=== PATIENT | female | born 1990 | race African-American/Black ===

== ENCOUNTER 2019-12-07 15:35 | Emergency (ER) | payer OTHER, SELFPAY ==
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
[2019-12-07 15:49] VITALS: BP 128/84; RESP 98; TEMP 36.6
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
[2019-12-07 17:42] VITALS: BP 142/80; PULSE 94; RESP 18; O2SAT 98
[2019-12-07] MEDS: IBUPROFEN 400 MG TABLET PO (19:28)
--- NOTE | 2019-12-07 19:30 | PC.NURSE ---
PT. WAS DISCHARGED BEFORE MED. NOTED TO BE GIVEN WAS IN WAITING ROOM. AND INTERACTIVE DEVELOPER GAVE MEDICATION . L
== END 2019-12-07 17:43 | disposition home or self-care (01) ==
PROVIDERS: Emergency Provider Family Medicine
DX: S06.0X9A Concussion with loss of consciousness of unspecified duration, initial encounter (principal); V89.2XXA Person injured in unspecified motor-vehicle accident, traffic, initial encounter
CPT/HCPCS: 70450; 72125; 99282; 99284; A9270